=== PATIENT | female | born 1970 | race Caucasian/White ===

== ENCOUNTER 2018-07-09 02:22 | Observation (INO) | payer OTHER ==
[2018-07-09] MEDS ORDERED: NALOXONE 0.4 MG/ML 1 ML VIAL IV PRN (03:05)
--- NOTE | 2018-07-09 03:05 | ED ---
Abdominal Pain HPI - General Chief Complaint: Abdominal Pain Stated Complaint: abd pain Time Seen by Provider: 07/09/18 02:45 Source: EMS Mode of arrival: EMS Limitations: no limitations - History of Present Illness Initial Comments: Moira is a previously healthy 47-year-old female who presents the emergency department today via EMS as a transfer from an outside facility. Patient sought care at the outside facility for evaluation of abdominal pain and nausea which began yesterday during the day. Workup at the outside facility revealed leukocytosis with a white blood cell count of 18.9 as well as computed tomography scan findings of acute appendicitis. Patient received Rocephin and ciprofloxacin as well as Dilaudid and Zofran prior to transfer. On arrival the patient reports she's feeling well, she is not nauseated, her pain is well controlled. - Related Data Allergies Allergy/AdvReac Type Severity Reaction Status Date / Time Sulfa (Sulfonamide Allergy Unknown Verified 07/09/18 02:30 Antibiotics) Review of Systems ROS Statement: Those systems with pertinent positive or pertinent negative responses have been documented in the HPI. ROS Other: All systems not noted in ROS Statement are negative. Past Medical History Past Medical History: No Reported History History of Any Multi-Drug Resistant Organisms: None Reported Past Surgical History: Section Past Psychological History: No Psychological Hx Reported Smoking Status: Former smoker Past Alcohol Use History: None Reported Past Drug Use History: Marijuana General Exam - General Exam Comments Initial Comments: Physical Exam GENERAL: Patient is well-developed and well-nourished. Patient is nontoxic and well- hydrated and is in no distress. HENT: Normocephalic, Atraumatic. EYES: PERRL, EOMI PULMONARY: Unlabored respirations. No audible rales rhonchi or wheezing was noted. CARDIOVASCULAR: There is a regular rate and rhythm without any murmurs gallops or rubs. ABDOMEN: Soft, minimal tenderness to palpation of the right lower quadrant Non-peritoneal SKIN: Skin is clear with no lesions or rashes and otherwise unremarkable. : Deferred NEUROLOGIC: Patient is alert and oriented x3. Moving all extremities spontaneously MUSCULOSKELETAL: Normal extremities with adequate strength and full range of motion. No lower extremity swelling or edema. No calf tenderness. PSYCHIATRIC: Normal psychiatric evaluation. Limitations: no limitations Limitations: no limitations Course Vital Signs 07/09/18 07/09/18 02:25 03:28 Temperature 98.9 F Pulse Rate 81 77 Respiratory 18 18 Rate Blood Pressure 93/52 106/61 O2 Sat by Pulse 99 100 Oximetry Medical Decision Making - Medical Decision Making Patient care was discussed with the transferring physician prior to transfer Patient arrived in no acute distress Patient was seen and evaluated, patient was noted to be hypotensive however the patient is a young thin female in reports that her blood pressure is usually relatively low Patient care was discussed with general surgeon on-call Dr. Parr who accepts the patient to his service recommends placing the patient observation, pain management, anti-emetics, nothing by mouth diet plan for surgery in the morning patient was updated on plan and is agreeable Disposition Clinical Impression: Acute appendicitis Disposition: ADMITTED IP TO THIS [facility] Condition: Stable Is patient prescribed a controlled substance at d/c from ED?: No Referrals: Tim Donovan MD [Primary Care Provider] - 1-2 days
[2018-07-09] MEDS: ONDANSETRON 4 MG/2 ML VIAL IVP PRN ×2 (04:17→11:48)
[2018-07-09] MEDS: MORPHINE SULFATE 4 MG/ML SYRINGE IV PRN ×2 (04:18→10:30)
[2018-07-09] MEDS: SODIUM CHLORIDE 0.9% 1,000 ML IV SCH ×2 (04:20→14:46)
[2018-07-09] MEDS ORDERED: IV FLUID CONTINUATION 1,000 ML IV ONE (11:22)
[2018-07-09] MEDS ORDERED: ceFAZolin IN SWFI 2 GM/20 ML SYRINGE IVP STA (11:43)
[2018-07-09] MEDS ORDERED: HEPARIN SODIUM,PORCINE 5,000 UNIT/ML 1 ML VIAL SQ ONE (11:48)
[2018-07-09] MEDS ORDERED: DEXAMETHASONE SOD PHOSPHATE 10 MG/ML 1 ML VIAL IV ONE (11:49)
--- NOTE | 2018-07-09 11:59 | P.GSHP ---
History of Present Illness H&P Date: 07/09/18 Chief Complaint: Acute appendicitis Patient transferred from [facility] with acute appendicitis. Patient began having pain yesterday. Pain was severe. Pain was in the right side radiating down to the right groin. Had nausea without vomiting. No fevers. White blood cell count elevated at 18.9. CAT scan shows acute appendicitis. Unable to load CAT scan films on outside CD. Pain is improved at this time. She was started on IV antibiotics. Pain still persisting however in the right lower quadrant. She has had history of intermittent right-sided pains in the past. - Review of Systems Comment: The patient denies any acute changes in vision or hearing, no dysphagia or odynophagia, no chest pain or shortness of breath, no dysuria or hematuria, no headache, no runny nose, no rectal bleeding or melena, no unexplained weight loss Past Medical History Past Medical History: No Reported History History of Any Multi-Drug Resistant Organisms: None Reported Past Surgical History: Section Additional Past Anesthesia/Blood Transfusion Reaction / Comment(s): patient states that she woke up and didn't recognize her daughter Past Psychological History: No Psychological Hx Reported Smoking Status: Former smoker Past Alcohol Use History: None Reported Past Drug Use History: Marijuana Medications and Allergies Home Medications Medication Instructions Recorded Confirmed Type No Known Home Medications 07/09/18 07/09/18 History Allergies Allergy/AdvReac Type Severity Reaction Status Date / Time Sulfa (Sulfonamide Allergy Unknown Verified 07/09/18 08:11 Antibiotics) Surgical - Exam Vital Signs Temp Pulse Resp BP Pulse Ox 98.9 F 81 18 93/52 99 07/09/18 02:25 07/09/18 02:25 07/09/18 02:25 07/09/18 02:25 07/09/18 02:25 Physical exam: General: Well-developed, well-nourished HEENT: Normocephalic, sclerae nonicteric Abdomen: Right lower quadrant tenderness, nondistended Extremities: No edema Neuro: Alert and oriented Assessment and Plan (1) Acute appendicitis Narrative/Plan: Will proceed with laparoscopic appendectomy, possible open appendectomy at this time. Risks of bleeding, infection, abscess, staple line dehiscence, conversion to an open procedure, bladder bowel and ureteral injury, anesthesia related complications were reviewed. She understands and wishes to proceed. Current Visit: Yes Status: Acute Code(s): K35.80 - UNSPECIFIED ACUTE APPENDICITIS SNOMED Code(s): 74807593
[2018-07-09] MEDS ORDERED: NEOSTIGMINE 1 MG/ML 10 ML VIAL ONE (12:06)
[2018-07-09] MEDS ORDERED: GLYCOPYRROLATE 0.2 MG/ML 2 ML VIAL ONE (12:06)
[2018-07-09] MEDS ORDERED: PROPOFOL 10 MG/ML 20 ML VIAL IV ONE (12:06)
[2018-07-09] MEDS ORDERED: fentaNYL (PF) 50 MCG/ML 2 ML AMP ONE (12:06)
[2018-07-09] MEDS ORDERED: ROCURONIUM BROMIDE 10 MG/ML 10 ML VIAL IV ONE (12:06)
[2018-07-09] MEDS ORDERED: MIDAZOLAM 2 MG/2 ML VIAL ONE (12:06)
[2018-07-09] MEDS ORDERED: KETOROLAC 30 MG/ML 1 ML VIAL ONE (12:06)
[2018-07-09] MEDS ORDERED: LACTATED RINGERS 1,000 ML IV ONE ×2 (12:37)
[2018-07-09] MEDS ORDERED: BUPIVACAIN-EPI 0.25%-1:200,000 30 ML VIAL SQ ONE (12:39)
[2018-07-09] MEDS ORDERED: HYDROcodone/APAP 5-325MG 1 EACH TAB PO PRN (13:00)
[2018-07-09] MEDS ORDERED: HYDROmorphone 1 MG/ML 1 ML SYRINGE IVP PRN (13:00)
--- NOTE | 2018-07-09 13:03 | P.OP ---
Date of Procedure: 07/09/18 Procedure(s) Performed: PREOPERATIVE DIAGNOSIS: Acute appendicitis POSTOPERATIVE DIAGNOSIS: Same PROCEDURE: Laparoscopic appendectomy SURGEON: Karolyn EBL: Total ANESTHESIA: General COMPLICATIONS: None OPERATIVE PROCEDURE: The patient was brought and placed on the operating table in the supine position. The patient was placed under general anesthesia. The abdomen was prepped and draped in the usual sterile fashion. A small vertical supraumbilical incision was made. The fascia was retracted anteriorly with La forceps. The Veress needle was advanced into the peritoneal cavity. The saline drop test was normal. Insufflation took place to 15 mmHg. A 5 mm trocar was then placed. An additional 5 mm suprapubic trocar was placed under direct visualization as well as a 12 mm left lower quadrant trocar under direct visualization. The appendix was inspected. It was acutely inflamed. The mesoappendix was dissected. The base of the appendix was divided using a linear 45 mm intestinal stapler. The mesentery itself was divided using a ceja load stapler. The area was then irrigated. No further purulence or bleeding was seen. The appendix was brought out of the peritoneal cavity through the left lower quadrant trocar site with an Endo Catch bag. The fascia at the 12 mm site was closed using a Naman-Marco 0 Vicryl stitch. The skin at all 3 sites was closed using 4-0 Monocryl sutures. Skin glue was then applied. DISPOSITION: Stable to recovery room
[2018-07-09] MEDS: HYDROmorphone 1 MG/ML 1 ML SYRINGE IVP ONE ×2 (13:20→13:33)
[2018-07-09 13:34] VITALS: RESP 18
[2018-07-09] MEDS ORDERED: PIPERACILLIN-TAZOBACTAM 3.375 GM in SODIUM CHLORIDE 0.9% 100 ML IVPB SCH (16:00)
[2018-07-09] MEDS ORDERED: HEPARIN SODIUM,PORCINE 5,000 UNIT/ML 1 ML VIAL SQ SCH (16:00)
[2018-07-09 17:34] VITALS: BP 97/68; PULSE 55; TEMP 98.6
--- NOTE | 2018-07-13 16:04 | P.DS ---
Providers Date of admission: 07/09/18 03:08 Expected date of discharge: 07/13/18 Attending physician: Saman Parr Primary care physician: Tim Donovan - Discharge Diagnosis(es) (1) Acute appendicitis Patient minute with acute appendicitis. This was identified by CAT scan. Postoperative the patient did well after laparoscopic removal. She was discharged home later that evening with plans for outpatient follow-up 1 week later. Prescription for pain medications provided. No antibiotics necessary on discharge. Status: Acute Patient Condition at Discharge: Stable Plan - Discharge Summary Discharge Rx Participant: Yes New Discharge Prescriptions: New Hydrocodone/Acetaminophen [Seltzer 5-325] 1 tab PO Q6HR PRN 3 Days #10 tab PRN Reason: Pain Discharge Medication List Hydrocodone/Acetaminophen [Seltzer 5-325] 1 tab PO Q6HR PRN 3 Days #10 tab [Rx] Follow up Appointment(s)/Referral(s): Saman Parr MD [Medical Doctor] - 2 Weeks (office closed. please call to make appointment) Tim Donovan MD [Primary Care Provider] - 1-2 days Patient Instructions/Handouts: Laparoscopic Appendectomy (DC)
== END 2018-07-09 19:05 ==
LOC: EC 02:22 → 4SSUR 03:08
PROVIDERS: ADMIT Surgery; ATTEND Surgery
DX: K35.30 Acute appendicitis with localized peritonitis, without perforation or gangrene (principal); I95.9 Hypotension, unspecified; Z88.2 Allergy status to sulfonamides; Z87.891 Personal history of nicotine dependence
CPT/HCPCS: 44970; 99285; 88304; G0378; J2543; J2250; J2270; J1644; J1100; J2710; J2405; J3010; J1885; J1170; J2704; J0690